=== PATIENT | female | born 1980 | race Caucasian/White ===

== ENCOUNTER 2016-12-17 09:11 | Emergency (ER) | payer OTHER ==
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
[~2016-12-17 09:11] MED LIST: ALBUTEROL HFA INH; AUGMENTIN875 M1 PO; CELEXA; CIPRO PO; DICLEGIS DR 101 EACH PO; DIFLUCAN PO; FLAGYL PO; HYDROXYZINE HCL10 MG PO; MACROBID100 M1 PO; NO MEDICATIONS; PHENERGAN SUPP25 M1 PR; PREDNISONE PO; PRENATAL1 TA1 PO; ROBITUSSIN A-C S5 ML PO; TOPROL XL; ZOFRAN ODT4 MG SL; ZYRTEC
[2016-12-17] MEDS ORDERED: NO MEDICATIONS (09:18)
== END 2016-12-17 10:57 | disposition home or self-care (01) ==
LOC: SED 09:11
DX: S90.31XA Contusion of right foot, initial encounter (principal); Z88.6 Allergy status to analgesic agent; Z88.5 Allergy status to narcotic agent; Z88.2 Allergy status to sulfonamides; Z88.8 Allergy status to other drugs, medicaments and biological substances; W20.8XXA Other cause of strike by thrown, projected or falling object, initial encounter; Y92.009 Unspecified place in unspecified non-institutional (private) residence as the place of occurrence of the external cause
CPT/HCPCS: 73630; 99283